=== PATIENT | male | born 2005 | race Two or more races ===

== ENCOUNTER 2025-09-28 05:39 | Emergency (ER) | payer MEDICAID, OTHER ==
[~2025-09-28] VITALS: Ht 172.7 cm; Wt 101.8 kg
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
[2025-09-28] MEDS ORDERED: LIDO2SOL18 MT (07:00)
[2025-09-28] MEDS ORDERED: IBUP-1455 PO (07:00)
[2025-09-28 07:20] VITALS: BP 137/72; PULSE 78; RESP 17; TEMP 98.7; O2SAT 97
== END 2025-09-28 07:21 | disposition home or self-care (01) ==
LOC: ER 05:39
DX: T23.202A Burn of second degree of left hand, unspecified site, initial encounter (principal); J02.8 Acute pharyngitis due to other specified organisms; B97.89 Other viral agents as the cause of diseases classified elsewhere; X19.XXXA Contact with other heat and hot substances, initial encounter; Y93.G3 Activity, cooking and baking; Y92.89 Other specified places as the place of occurrence of the external cause; Y99.8 Other external cause status